=== PATIENT | male | born 1950 | race Caucasian/White ===

== ENCOUNTER 2019-01-16 10:02 | Emergency (ER) | payer MEDICARE ==
[~2019-01-16] VITALS: Ht 175.3 cm; Wt 79.9 kg
[2019-01-16 11:24] LABS: BASOPHILS % (AUTO) 0.5 % (0-1); EOSINOPHILS # (AUTO) 0.1 X10'3 (0-0.9); EOSINOPHILS % (AUTO) 2.7 % (0-6); HEMATOCRIT 38.8 % (42.0-52.0); HEMOGLOBIN 13.6 g/dl (14.0-17.9); LYMPHOCYTES # (AUTO) 0.8 X10'3 (1.1-4.8); MEAN CORPUSCULAR HEMOGLOBIN 34.8 PG (27.0-31.0); MEAN CORPUSCULAR HGB CONC 34.9 g/dL (33.0-36.5); MEAN CORPUSCULAR VOLUME 99.6 FL (78-98); MEAN PLATELET VOLUME 6.1 FL (7.4-10.4); MONOCYTES # (AUTO) 0.9 X10'3 (0-0.9); MONOCYTES % (AUTO) 17.1 % (2-12); NEUTROPHILS # (AUTO) 3.3 X10'3 (1.8-7.7); NEUTROPHILS % (AUTO) 64.7 % (42-75); PLATELET COUNT 196 X10'3 (140-440); RED BLOOD COUNT 3.89 X10'6 (4.70-6.10); RED CELL DISTRIBUTION WIDTH 13.2 % (11.5-14.5); WHITE BLOOD COUNT 5.1 X10'3 (4.5-11.0)
[2019-01-16 11:39] LABS: ALANINE AMINOTRANSFERASE 16 U/L (12-78); ALBUMIN 2.4 G/DL (3.4-5.0); ALBUMIN/GLOBULIN RATIO 0.5 (1.1-1.5); ALKALINE PHOSPHATASE 75 IU/L (46-116); ANION GAP 7 (8-16); ASPARTATE AMINO TRANSFERASE 29 U/L (10-37); BILIRUBIN,TOTAL 1.1 MG/DL (0.1-1.0); BLOOD UREA NITROGEN 13 MG/DL (7-18); BUN/CREATININE RATIO 7.6 (5.4-32.0); CALCIUM 8.9 MG/DL (8.5-10.1); CHLORIDE 94 MMOL/L (99-107); CREATININE 1.71 MG/DL (0.60-1.10); GLUCOSE 108 MG/DL (70-104); MAGNESIUM 1.8 MG/DL (1.5-2.4); SODIUM 130 MMOL/L (135-145); TOTAL PROTEIN 7.2 G/DL (6.4-8.2); eGFR 40 ML/MIN
[2019-01-16 11:44] LABS: PLATELET ESTIMATE NORMAL; TOTAL CELLS COUNTED 100
[2019-01-16 11:59] LABS: CLARITY,URINE CLEAR (Clear); COLOR,URINE YELLOW (Yellow); GLUCOSE, URINE NEGATIVE (Neg); KETONES,URINE NEGATIVE (Neg); LEUKOCYTE ESTERASE ,URINE NEGATIVE (Neg); NITRITES, URINE NEGATIVE (Neg); OCCULT BLOOD,URINE MODERATE (Neg); PH,URINE 5.5 (4.8-8.0); PROTEIN,URINE NEGATIVE (Neg); UROBILINOGEN,URINE 0.2 E.U/dL (0.2-1.0)
[2019-01-16 12:01] LABS: UA COLLECTION TYPE CLN CATCH MIDSTREAM
[2019-01-16 12:06] LABS: SQUAMOUS EPITHELIAL CELL,UR FEW /LPF (FEW)
[2019-01-16 12:07] LABS: HYALINE CASTS 0-3 /LPF (NEGATIVE)
[2019-01-16 12:08] LABS: BACTERIA,URINE FEW /HPF (Neg); WBC,URINE 0-4 /HPF (0-4)
[2019-01-16 12:09] LABS: STARCH,URINE FEW /HPF (NEGATIVE)
--- NOTE | 2019-01-16 12:55 | NUR ---
7L removed, paracentisis re eval vs as charted
[2019-01-16 12:59] VITALS: BP 114/63
== END 2019-01-16 13:23 | disposition home or self-care (01) ==
LOC: ER 10:03
DX: R18.8 Other ascites (principal)
CPT/HCPCS: 36415; 49083; 80053; 81001; 83735; 85025; 93005; 99285